=== PATIENT | male | born 1970 | race Caucasian/White ===

== ENCOUNTER 2018-04-13 15:29 | Emergency (ER) | payer OTHER ==
[2018-04-13 16:22] LABS: ADD MAN DIFF? NO
[2018-04-13 16:28] LABS: BASOPHILS % 0.4 % (0.0-2.0); EOSINOPHILS # 0.1 10^3/ul (0.0-0.5); EOSINOPHILS % 1.7 % (0.0-7.0); HEMATOCRIT 45.8 % (42.0-52.0); HEMOGLOBIN 15.3 g/dl (14.0-18.0); LYMPHOCYTES # 2.6 10^3/ul (0.8-2.9); LYMPHOCYTES % 37.2 % (15.0-51.0); MEAN CORPUSCULAR HEMOGLOBIN 29.5 pg (29.0-33.0); MEAN CORPUSCULAR HGB CONC 33.4 g/dl (32.0-37.0); MEAN CORPUSCULAR VOLUME 88.4 fl (82.0-101.0); MEAN PLATELET VOLUME 11.3 fl (7.4-10.4); MONOCYTE # 0.5 10^3/ul (0.3-0.9); MONOCYTES % 7.3 % (0.0-11.0); NEUTROPHIL # 3.7 10^3/ul (1.6-7.5); NEUTROPHILS % 53.3 % (39.0-77.0); PLATELET COUNT 220 10^3/UL (140-415); RED BLOOD COUNT 5.18 10^6/ul (4.70-6.10); RED CELL DISTRIBUTION WIDTH 12.7 % (11.5-14.5)
[2018-04-13 16:47] LABS: ADD UMIC NO; ALANINE AMINOTRANSFERASE 76 IU/L (13-69); ALBUMIN 4.4 g/dl (3.3-4.9); ALBUMIN/GLOBULIN RATIO 1.22; ALKALINE PHOSPHATASE 113 IU/L (42-121); ANION GAP 14 (8-16); ASPARTATE AMINO TRANSFERASE 56 IU/L (15-46); BILIRUBIN,INDIRECT 0.6 mg/dl (0-1.1); BILIRUBIN,TOTAL 0.6 mg/dl (0.2-1.3); BLOOD UREA NITROGEN 15 mg/dl (7-20); CALCIUM 9.5 mg/dl (8.4-10.2); CARBON DIOXIDE 29 mmol/L (21-31); CHLORIDE 106 mmol/L (97-110); CHOL/HDL RATIO 5.2 RATIO; CHOLESTEROL 173 mg/dl (100-200); CREATININE 0.73 mg/dl (0.61-1.24); GLUCOSE 141 mg/dl (70-220); HDL CHOLESTEROL 33 mg/dl (27-67); LDL CHOLESTEROL,CALCULATED 82 mg/dl; POTASSIUM 3.8 mmol/L (3.5-5.1); SODIUM 145 mmol/L (135-144); TRIGLYCERIDES 289 mg/dl (0-149); UR ASCORBIC ACID 40 mg/dL (NEGATIVE); UR BILIRUBIN (Dip) NEGATIVE (NEGATIVE); UR BLOOD (Dip) NEGATIVE (NEGATIVE); UR CLARITY CLEAR (CLEAR); UR COLOR YELLOW (YELLOW); UR GLUCOSE (Dip) NEGATIVE (NEGATIVE); UR KETONES (Dip) NEGATIVE (NEGATIVE); UR LEUKOCYTE ESTERASE (Dip) NEGATIVE Leu/ul (NEGATIVE); UR NITRITE (Dip) NEGATIVE (NEGATIVE); UR SPECIFIC GRAVITY (Dip) 1.026 (1.003-1.030); UR TOTAL PROTEIN (Dip) NEGATIVE (NEGATIVE); UR UROBILINOGEN (Dip) 1+ mg/dL (NEGATIVE)
[2018-04-13 16:52] LABS: INR 0.96; PARTIAL THROMBOPLASTIN TIME 31.6 Sec (25.0-35.0); PROTIME 12.9 Sec (11.9-14.9)
[2018-04-13 17:00] LABS: TROPONIN-I < 0.012 ng/ml (0.000-0.120)
[2018-04-13 17:10] LABS: AMPHETAMINE/METHAMPHETAMINE NEGATIVE (NEGATIVE); BARBITURATES NEGATIVE (NEGATIVE); BENZODIAZEPINES NEGATIVE (NEGATIVE); CANNABINOIDS NEGATIVE (NEGATIVE); COCAINE NEGATIVE (NEGATIVE)
[2018-04-13 17:11] LABS: OPIATES NEGATIVE (NEGATIVE)
[2018-04-13 19:21] LABS: HEMOGLOBIN A1C 5.9 % (0-5.9)
== END 2018-04-13 17:40 | disposition home or self-care (01) ==
LOC: E/R 15:29
DX: R20.0 Anesthesia of skin (principal); R40.2142 Coma scale, eyes open, spontaneous, at arrival to emergency department; R40.2252 Coma scale, best verbal response, oriented, at arrival to emergency department; R40.2362 Coma scale, best motor response, obeys commands, at arrival to emergency department; R07.9 Chest pain, unspecified
CPT/HCPCS: 36415; 70450; 71045; 80053; 80061; 80307; 81003; 83036; 84484; 85025; 85610; 85730; 93005; 99285-25

== ENCOUNTER 2018-07-19 14:08 | Emergency (ER) | payer OTHER ==
[2018-07-19] MEDS: KETOROLAC 30 MG INJ IM (16:10)
[2018-07-19] MEDS: DIPHTH/TET/ACEL PERTUSS (ADULT) 0.5 ML VIAL IM* (16:11)
== END 2018-07-19 16:57 | disposition home or self-care (01) ==
LOC: FTE 14:08
DX: S61.204A Unspecified open wound of right ring finger without damage to nail, initial encounter (principal); W23.0XXA Caught, crushed, jammed, or pinched between moving objects, initial encounter; Y92.9 Unspecified place or not applicable; Z23 Encounter for immunization
CPT/HCPCS: 73140; 90471; 90715; 96372; 99284-25

== ENCOUNTER 2018-10-20 16:13 | Emergency (ER) | payer OTHER ==
[2018-10-20] MEDS: LIDOCAINE 1% (MPF) 5 ML VIAL INFIL (20:36)
== END 2018-10-20 21:51 | disposition home or self-care (01) ==
LOC: FTE 16:13
DX: L02.211 Cutaneous abscess of abdominal wall (principal)
CPT/HCPCS: 10060; 99283-25

== ENCOUNTER 2019-01-18 13:47 | Emergency (ER) | payer SELFPAY, OTHER ==
[2019-01-18 15:38] LABS: ADD MAN DIFF? NO
[2019-01-18 15:40] LABS: BASOPHILS % 0.4 % (0.0-2.0); EOSINOPHILS # 0.2 10^3/ul (0.0-0.5); EOSINOPHILS % 2.2 % (0.0-7.0); HEMATOCRIT 44.4 % (42.0-52.0); HEMOGLOBIN 14.8 g/dl (14.0-18.0); LYMPHOCYTES # 2.5 10^3/ul (0.8-2.9); LYMPHOCYTES % 37.3 % (15.0-51.0); MEAN CORPUSCULAR HEMOGLOBIN 29.4 pg (29.0-33.0); MEAN CORPUSCULAR HGB CONC 33.3 g/dl (32.0-37.0); MEAN CORPUSCULAR VOLUME 88.1 fl (82.0-101.0); MEAN PLATELET VOLUME 10.8 fl (7.4-10.4); MONOCYTE # 0.7 10^3/ul (0.3-0.9); MONOCYTES % 9.6 % (0.0-11.0); NEUTROPHIL # 3.4 10^3/ul (1.6-7.5); NEUTROPHILS % 50.4 % (39.0-77.0); PLATELET COUNT 215 10^3/UL (140-415); RED BLOOD COUNT 5.04 10^6/ul (4.70-6.10); RED CELL DISTRIBUTION WIDTH 12.4 % (11.5-14.5)
[2019-01-18 15:40] LABS: WHITE BLOOD COUNT 6.8 10^3/ul (4.8-10.8)
[2019-01-18] MEDS: KETOROLAC 30 MG INJ IV (15:49)
[2019-01-18] MEDS: LORAZEPAM 2 MG INJ IV (15:49)
[2019-01-18 16:02] LABS: INR 0.97
[2019-01-18 16:03] LABS: PARTIAL THROMBOPLASTIN TIME 33.7 Sec (23.0-35.0)
[2019-01-18 16:13] LABS: ALANINE AMINOTRANSFERASE 91 IU/L (13-69); ALBUMIN 4.3 g/dl (3.3-4.9); ALBUMIN/GLOBULIN RATIO 1.22; ALKALINE PHOSPHATASE 75 IU/L (42-121); ANION GAP 8 (5-13); ASPARTATE AMINO TRANSFERASE 67 IU/L (15-46); BILIRUBIN,INDIRECT 0.6 mg/dl (0-1.1); BILIRUBIN,TOTAL 0.6 mg/dl (0.2-1.3); BLOOD UREA NITROGEN 16 mg/dl (7-20); CALCIUM 8.9 mg/dl (8.4-10.2); CARBON DIOXIDE 28 mmol/L (21-31); CHLORIDE 104 mmol/L (97-110); CREATINE KINASE 121 IU/L (23-200); Estimated GFR > 60 mL/min (>60); GLUCOSE 87 mg/dl (70-220); POTASSIUM 4.4 mmol/L (3.5-5.1); SODIUM 140 mmol/L (135-144); TOTAL PROTEIN 7.8 g/dl (6.1-8.1)
[2019-01-18 16:25] LABS: B-TYPE NATRIURETIC PEPTIDE < 11 PG/ML (0-125); CK INDEX 0.3; CK-MB 0.36 ng/ml (0.0-2.4); TROPONIN-I < 0.012 ng/ml (0.000-0.120)
== END 2019-01-18 19:23 | disposition home or self-care (01) ==
LOC: E/R 13:47
DX: F41.9 Anxiety disorder, unspecified (principal); G44.209 Tension-type headache, unspecified, not intractable; R07.9 Chest pain, unspecified; R40.2142 Coma scale, eyes open, spontaneous, at arrival to emergency department; R40.2362 Coma scale, best motor response, obeys commands, at arrival to emergency department
CPT/HCPCS: 70450; 71045; 80053; 82550; 82553; 83880; 84484; 85025; 85610; 85730; 93005; 96374; 96375; 99285-25